=== PATIENT | female | born 1955 | race Two or more races ===

== ENCOUNTER 2021-09-11 02:40 | Inpatient (IN) | payer MEDICAID, OTHER ==
[~2021-09-11] VITALS: Ht 157.5 cm; Wt 46.2 kg
[2021-09-11] MEDS ORDERED: SODIUM CHLORIDE 0.9% 1,000 ML IV ONE (04:30)
[2021-09-11] MEDS ORDERED: fentaNYL CITRATE 100 MCG/2 ML VL IV ONE (04:30)
[2021-09-11] MEDS ORDERED: ONDANSETRON HCL 4 MG/2 ML VIAL IV ONE (04:30)
[2021-09-11 04:37] LABS: Basophils # (auto) 0.1 10 ^3/uL (0-0.2); Basophils % (auto) 0.6 % (0.0-2.0); Eosinophils # (auto) 0.1 10 ^3/uL (0-0.8); Eosinophils % (auto) 0.8 % (0.0-7.0); Hemoglobin 14.3 g/dL (12.2-16.2); Lymphocytes # (auto) 2.9 10 ^3/uL (0.4-5.4); Lymphocytes % (auto) 28.8 % (10.0-50.0); Mean Corpuscular Hemoglobin 29.8 pg (28.0-32.0); Mean Corpuscular Hgb Conc. 33.1 g/dL (32.0-36.0); Monocytes # (auto) 0.4 10 ^3/uL (0-1.3); Monocytes % (auto) 4.3 % (0.0-12.0); Neutrophils # (auto) 6.7 10 ^3/uL (1.6-8.6); Neutrophils % (auto) 65.5 % (37.0-80.0); Nucleated Red Blood Cells % 0.1 %; Red Blood Cells 4.78 10^6/uL (4.0-5.20); Red Cell Distribution Width 13.9 % (11.8-14.3); White Blood Cell 10.2 10^3/uL (4.4-10.8)
[2021-09-11] MEDS ORDERED: fentaNYL CITRATE 5 ML ONE (04:39)
[2021-09-11] MEDS ORDERED: ONDANSETRON HCL 4 MG/2 ML VIAL ONE (04:39)
[2021-09-11 05:03] LABS: Calcium 10.5 mg/dL (8.5-10.1); Magnesium 2.5 mg/dL (1.6-2.6); Potassium 3.4 mmol/L (3.5-5.1)
[2021-09-11 05:09] LABS: BUN/Creatinine Ratio 12.1; Bilirubin, Total 0.6 mg/dL (0.2-1.0); Lactic Acid w/Reflex 2.4 mmol/L (0.4-2.0); Total Protein 7.8 g/dL (6.4-8.2)
[2021-09-11] MEDS ORDERED: IOHEXOL 300 MG/ML 100ML BOTTLE IJ ONE (05:59)
[2021-09-11] MEDS ORDERED: IOHEXOL 350 MG/ML 100ML IJ ONE (07:26)
[2021-09-11] MEDS ORDERED: HYDROmorphone HCL 2 MG/ML VL IV PRN (10:45)
[2021-09-11] MEDS ORDERED: NITROGLYCERIN 0.4 MG SL TAB SL PRN (10:45)
[2021-09-11] MEDS ORDERED: MORPHINE SULFATE INJECTION 2 MG/ML SYRG IV PRN (10:45)
[2021-09-11] MEDS ORDERED: AMLO-489 PO (20:56)
[2021-09-11] MEDS ORDERED: ATOR20TA50 PO (20:56)
[2021-09-11 22:00] VITALS: BP 127/63
[2021-09-11 22:56] VITALS: BP 127/63
[2021-09-11] MEDS ORDERED: PNEUMOCOCCAL VACC POLYS 25 MCG/0.5 ML VIAL IM ONE (23:00)
[2021-09-12] MEDS ORDERED: diphenhdrAMINE HCL 50 MG/1 ML VL ONE (08:18)
[2021-09-12] MEDS ORDERED: LIDOCAINE VISCOUS 2% 15ML UD ONE (08:18)
[2021-09-12 09:00] VITALS: BP_SYST 107; BP_SYST 115; BP_DIAS 56; BP_DIAS 57
[2021-09-12] MEDS: MIDAZOLAM HCL 5 MG/ML-1ML VIAL ONE ×2 (09:30→09:33)
[2021-09-12] MEDS: fentaNYL CITRATE 100 MCG/2 ML VL ONE ×2 (09:30→09:33)
[2021-09-12] MEDS: PANTOPRAZOLE 40 MG TAB PO SCH ×2 (11:35→22:09)
[2021-09-12 13:00] VITALS: BP 132/56
[2021-09-12 17:00] VITALS: BP 100/47
[2021-09-12 20:00] VITALS: BP 120/61
[2021-09-13 06:00] VITALS: BP 109/56
[2021-09-13 08:00] VITALS: BP 129/54
[2021-09-13 09:00] VITALS: BP 118/57
[2021-09-13] MEDS: PANTOPRAZOLE 40 MG TAB PO SCH ×2 (10:06→21:58)
[2021-09-13 13:00] VITALS: BP 129/54
[2021-09-13 17:00] VITALS: BP 114/59
[2021-09-13 22:00] VITALS: BP_SYST 113; BP_SYST 98; BP_DIAS 44; BP_DIAS 46
[2021-09-14] VITALS (7 sets, daily range): BP systolic 109–125; BP diastolic 49–69
[2021-09-14] MEDS: HYDROcodone-ACET 5/325MG TAB PO PRN (05:09)
[2021-09-14] MEDS: PANTOPRAZOLE 40 MG TAB PO SCH ×2 (09:15→21:53)
[2021-09-14 13:01] LABS: BUN/Creatinine Ratio 15.7; Calcium 9.9 mg/dL (8.5-10.1)
[2021-09-15] VITALS (22 sets, daily range): BP systolic 120–162; BP diastolic 62–99
[2021-09-15 08:39] LABS: INR 0.95 (0.9-1.15); Partial Thromboplastin Time 29.6 sec (23.6-33.0)
[2021-09-15] MEDS: PANTOPRAZOLE 40 MG TAB PO SCH ×2 (09:29→21:43)
[2021-09-15] MEDS ORDERED: fentaNYL CITRATE 100 MCG/2 ML VL IV ONE (10:30)
[2021-09-15] MEDS ORDERED: MIDAZOLAM HCL 2MG/2ML 2ml VIAL (1mg/ml) IV ONE (10:30)
[2021-09-15] MEDS ORDERED: LIDOCAINE 2%HCL (LOCAL ANESTH.) INJ 20ML MDV ONE (13:33)
[2021-09-16 05:00] VITALS: BP 115/62
[2021-09-16] MEDS: HYDROcodone-ACET 5/325MG TAB PO PRN (08:15)
[2021-09-16 09:00] VITALS: BP_SYST 100; BP_SYST 119; BP_DIAS 52; BP_DIAS 60
[2021-09-16] MEDS: PANTOPRAZOLE 40 MG TAB PO SCH (09:19)
[2021-09-16] MEDS ORDERED: PANT40T PO (12:26)
[2021-09-16] MEDS ORDERED: ONDA-144 PO (12:26)
[2021-09-16] MEDS ORDERED: APIX5TAB4 PO (12:41)
[2021-09-16] MEDS ORDERED: APIXABAN 5 MG TAB PO ONE (12:45)
[2021-09-16 13:04] VITALS: BP 113/62
[2021-09-16 13:53] VITALS: BP 113/62
[2021-09-16 17:00] VITALS: BP 143/62
== END 2021-09-16 18:00 | disposition home or self-care (01) | DRG 136 ==
LOC: ER 02:40 → EDBD 02:40 → OVERFLOW 10:42 → WEST WING 20:10
PROVIDERS: ADMIT Internal Medicine Nephrology; ATTEND Internal Medicine
PROC: 0DB68ZX Excision of Stomach, Via Natural or Artificial Opening Endoscopic, Diagnostic (ICD-10-PCS; 2021-09-12)
PROC: 0BBD3ZX Excision of Right Middle Lung Lobe, Percutaneous Approach, Diagnostic (ICD-10-PCS; principal; 2021-09-15)
DX: C78.01 Secondary malignant neoplasm of right lung (principal); C78.89 Secondary malignant neoplasm of other digestive organs; C43.9 Malignant melanoma of skin, unspecified; I27.82 Chronic pulmonary embolism; C79.70 Secondary malignant neoplasm of unspecified adrenal gland; C78.02 Secondary malignant neoplasm of left lung; Z20.822 Contact with and (suspected) exposure to COVID-19; I10 Essential (primary) hypertension; E78.5 Hyperlipidemia, unspecified; K29.70 Gastritis, unspecified, without bleeding; R91.8 Other nonspecific abnormal finding of lung field; K86.9 Disease of pancreas, unspecified; Z82.49 Family history of ischemic heart disease and other diseases of the circulatory system; Z85.820 Personal history of malignant melanoma of skin; Z89.422 Acquired absence of other left toe(s); Z88.7 Allergy status to serum and vaccine
CPT/HCPCS: 10022; 36415; 71045; 71250; 71275; 74177; 77012; 78306; 80048; 80053; 83605; 83690; 83735; 83880; 84484; 85025; 85610; 85730; 86301; 87426; 93005; 96361; 96374; 96375; G0378; J2250; J2405